=== PATIENT | male | born 1985 | race Two or more races ===

== ENCOUNTER 2017-11-20 05:59 | Emergency (ER) | payer SELFPAY ==
[~2017-11-20] VITALS: Ht 177.8 cm; Wt 113.4 kg
[~2017-11-20 05:59] MED LIST: AMOX500 PO; AZIT250 PO; Allegra-D 24 H1 EACH PO; Amoxicillin500 MG PO; EPIN.3I IM; Flonase 0.05% N16 GM; HYDACE5 PO; HYDGUAL120 PO; OXYACE5T PO; Peridex480 ML SS; SULTRIDS PO; Ultram50 MG PO
[2017-11-20] MEDS ORDERED: ALBU90OI INH (06:55)
[2017-11-20] MEDS ORDERED: Prednisone20 MG PO (06:55)
== END 2017-11-20 07:05 | disposition home or self-care (01) ==
LOC: ER 05:59
DX: J06.9 Acute upper respiratory infection, unspecified (principal); F12.90 Cannabis use, unspecified, uncomplicated; J30.2 Other seasonal allergic rhinitis; G43.909 Migraine, unspecified, not intractable, without status migrainosus; Z87.891 Personal history of nicotine dependence; Z79.52 Long term (current) use of systemic steroids; Z79.51 Long term (current) use of inhaled steroids; Z79.899 Other long term (current) drug therapy
CPT/HCPCS: 87081; 87430; 99283; J1100

== ENCOUNTER 2018-08-04 13:46 | Emergency (ER) | payer OTHER ==
[~2018-08-04] VITALS: Ht 180.3 cm; Wt 111.1 kg
[~2018-08-04 13:46] MED LIST changes: +ALBU90OI INH; +CYCL10 PO; +IBUP600 PO; +Prednisone20 MG PO
[2018-08-04] MEDS ORDERED: Amoxicillin500 MG PO (14:03)
== END 2018-08-04 14:24 | disposition home or self-care (01) ==
LOC: ER 13:46
DX: K02.9 Dental caries, unspecified (principal); K03.81 Cracked tooth; G43.909 Migraine, unspecified, not intractable, without status migrainosus; Z79.899 Other long term (current) drug therapy; Z87.891 Personal history of nicotine dependence
CPT/HCPCS: 64400; 99282-25